=== PATIENT | male | born 1970 | race Caucasian/White ===

== ENCOUNTER 2021-03-06 10:22 | Emergency (ER) | payer SELFPAY ==
[~2021-03-06] VITALS: Ht 165.1 cm; Wt 72.7 kg
[2021-03-06] MEDS ORDERED: MORPHINE SULFATE 2 MG/ML INJ. IV/SQ PRN (10:45)
--- NOTE | 2021-03-06 10:50 | PHYS DOC ---
Past Medical History Past Surgical History: Other Additional Past Surgical Histo: TESTICLE TORSION General Adult EDM: Chief Complaint: BACK PAIN - NO INJURY HPI: HPI: Patient is a 50 year old male with history of HTN who presents with chest and back pain. At 9 AM was sitting watching television when he had sudden severe onset of midthoracic back pain. Described as stabbing and pressure. Occasionally radiates towards the chest, and then moved back towards the back. Associated with numbness/tingling in his extremities bilaterally. Never had similar symptoms. Denies history of HLD, DM. He is a daily smoker. Review of Systems: Review of Systems: Constitutional: Denies fever or chills. [] Eyes: Denies change in visual acuity. [] HENT: Denies nasal congestion or sore throat. [] Respiratory: Denies cough or shortness of breath. [] Cardiovascular: Reports chest pain and back pain GI: Denies abdominal pain, nausea, vomiting, bloody stools or diarrhea. [] : Denies dysuria. [] Musculoskeletal:. Reports severe back pain. Denies Joint pain. [] Integument: Denies rash. [] Neurologic: Denies headache, focal weakness or sensory changes. [] Endocrine: Denies polyuria or polydipsia. [] Lymphatic: Denies swollen glands. [] Psychiatric: Denies depression or anxiety. [] Heart Score: C/O Chest Pain: Yes HEART Score for Chest Pain: HEART Score for Chest Pain Response (Comments) Value History Moderately Suspicious 1 ECG Nonspecific Repolarizatio 1 Age >45 - < 65 1 Risk Factors 1 or 2 Risk Factors 1 Troponin < Normal Limit 0 Total 4 Risk Factors: Risk Factors: HTN and smoking Allergies: Allergies: Allergies Coded Allergies Type Severity Reaction Last Updated Verified No Known Drug Allergies 03/06/21 No Physical Exam: PE: Constitutional: Diaphoretic, appears acutely uncomfortable HENT: Normocephalic, atraumatic, bilateral external ears normal, oropharynx moist, no oral exudates, nose normal. [] Eyes: PERRLA, EOMI, conjunctiva normal, no discharge. [] Neck: Normal range of motion, no tenderness, supple, no stridor. [] Cardiovascular:Heart rate regular rhythm, no murmur [] Lungs & Thorax: Bilateral breath sounds clear to auscultation [] Abdomen: Bowel sounds normal, soft, no tenderness, no masses, no pulsatile masses. [] Skin: Warm, dry, no erythema, no rash. [] Back: No tenderness, no CVA tenderness. [] Extremities: No tenderness, no cyanosis, no clubbing, ROM intact, no edema. 2+ pulses in bilateral radial arteries and DP. All extremities are warm, well perfused. [] Neurologic: Alert and oriented X 3, normal motor function, normal sensory function, no focal deficits noted. [] Psychologic: Affect normal, judgement normal, mood normal. [] Current Patient Data: Vital Signs: Vital Signs Date Time Temp Pulse Resp B/P (MAP) Pulse Ox O2 Delivery O2 Flow Rate FiO2 03/06/21 10:22 97.9 77 19 160/92 (114) 97 Room Air 97.9 EKG: EKG: [] Sinus rhythm. Rate 73. Normal axis. Normal intervals. Possibly some lateral ST depression in V5. No ST elevation. Radiology/Procedures: Radiology/Procedures: [] Impression: [facility] [address] [place], [place] [id number] IMAGING REPORT Signed PATIENT: ANDREY MELENDREZ ACCOUNT: [id number] : 1970 LOCATION: ER AGE: 50 SEX: M EXAM STATUS: PRE ER ORD. PHYSICIAN: RAYMON BRAMBILA MD REASON: r/o aortic dissection. severe chest/back pain. PROCEDURE: CT ANGIOGRAPHY CHEST CT angiography of the chest 03/06/2021 INDICATION: Severe chest pain. Evaluate for dissection. COMPARISON STUDY: None. FINDINGS: CT imaging of the chest was performed before and after the administr ation of contrast. 3-D reconstructions of thoracic vasculature were created on an independent workstation and reviewed. FINDINGS: Motion artifact noted in the heart and proximal most ascending aorta. There is no evidence of thoracic aortic dissection or aneurysm. Bovine configuration of the aortic arch noted. Patient is seen to be left vertebral dominant. There is no evidence of thoracic aortic aneurysm. Visualized parts of the upper abdominal aorta are unremarkable. Heart size is normal. No pericardial effusion is identified. Multifocal mediastinal and bilateral hilar adenopathy is noted. Some of these nodes have a short axis diameter just under 1.5 cm including a node in the subaortic region (image 35) and in the paraesophageal (image 52 ) regions. Intralobular emphysematous changes are seen throughout the lungs. No pneumothorax, or pleural effusion is seen. Appearing focal infiltrate is identified. IMPRESSION: 1. No evidence of aortic dissection 2. Centrilobular emphysema 3. Mediastinal and bilateral hilar adenopathy, which is nonspecific. Clinical correlation for possible etiologies of mediastinal adenopathy recommended. Based on clinical history and findings, further evaluation with 3 month follow- up chest CT or PET/CT should be considered. CT DOSING PQRS STATEMENT: One or more of the following individualized dose reduction techniques were utilized for this examination: 1. Automated exposure control 2. Adjustment of the mA and/or kV according to patient size 3. Use of iterative reconstruction technique Electronically signed by: Talha Lozano MD (03/06/2021 11:33 AM) [id number] DICTATED and SIGNED BY: TALHA LOZANO MD DATE: 03/06/21 [id number] 0 Course & Med Decision Making: Course & Med Decision Making Pertinent Labs and Imaging studies reviewed. (See chart for details) Patient 50-year-old male with history of untreated HTN, smoking who presents with stabbing back pain radiating to the chest. Hypertensive to 160s here, hypertensive in the 200s originally on scene. Received 324 mg ASA prior to arrival. Concern for aortic dissection, ACS. CTA of the chest ordered. Serial troponins ordered. EKG shows no STEMI. 1050 Troponin elevated 301. Discussed with radiology, no dissection, and no PE. Will treat with IV heparin load and infusion. Will discuss with cardiology and hospitalist regarding admission. 1125 Nursing staff notified me that the troponin of 301 was a result of a laboratory error. The patient's actual troponin was 5. He will still require serial troponin levels to r/o ACS. He was unforunately given an inappropriate dose of heparin based on this incorrect lab. I explained the series of events to the patient and he is understanding of the situation. Will discuss with admitting team to determine most appropriate path forward regarding his admission. [address] Nowak, hospitalist. Will be observation admit for hypertension management and serial troponins. 1318 Dragalejandro Disclaimer: Dragalejandro Disclaimer: This electronic medical record was generated, in whole or in part, using a voice recognition dictation system. Departure Departure Impression: Primary Impression: Mediastinal lymphadenopathy Additional Impression: Chest pain Disposition: ADMITTED INPATIENT Admitting Physician: FIORDALIZA Guerrero) Condition: STABLE RAYMON BRAMBILA MD Mar 06, 2021 10:50
[2021-03-06 10:55] LABS: BASO % 1 % (0-3); EOS # 0.2 x10^3/uL (0.0-0.7); EOS % 2 % (0-3); HEMATOCRIT 48.9 % (39.0-53.0); HEMOGLOBIN 16.6 g/dL (13.0-17.5); LYMPH # 2.6 x10^3/uL (1.0-4.8); LYMPH % 26 % (24-48); MEAN CORPUSCULAR HEMOGLOBIN 31 pg (25-35); MEAN CORPUSCULAR HGB CONC 34 g/dL (31-37); MEAN CORPUSCULAR VOLUME 91 fL (79-100); MONO # 0.9 x10^3/uL (0.0-1.1); MONO % 9 % (0-9); NEUT # 6.1 x10^3/uL (1.8-7.7); NEUT % 62 % (31-73); PLATELET COUNT 223 x10^3/uL (140-400); RED BLOOD COUNT 5.36 x10^6/uL (4.30-5.70); RED CELL DISTRIBUTION WIDTH 14.2 % (11.5-14.5); WHITE BLOOD COUNT 9.7 x10^3/uL (4.0-11.0)
[2021-03-06] MEDS ORDERED: CONTRAST GIVEN. MC PRN (11:00)
[2021-03-06] MEDS ORDERED: IOHEXOL 350 MG/ML 100 ML VIAL. IV ONE (11:00)
[2021-03-06] MEDS ORDERED: NITROGLYCERIN SUBLINGUAL 0.4 MG BOTTLE OF 25. SL PRN (11:15)
[2021-03-06] MEDS ORDERED: HEPARIN for IV BOLUS 10,000 UNIT/10 ML VIAL. IV PRN (11:30)
[2021-03-06] MEDS ORDERED: HEPARIN for IV BOLUS 10,000 UNIT/10 ML VIAL. IV ONE (11:30)
[2021-03-06] MEDS ORDERED: HEPARIN 25,000UTS/250ML PREMIX 250 ML IV PRN (11:30)
--- NOTE | 2021-03-06 11:36 | RAD ---
CT angiography of the chest 03/06/2021 INDICATION: Severe chest pain. Evaluate for dissection. COMPARISON STUDY: None. FINDINGS: CT imaging of the chest was performed before and after the administration of contrast. 3-D reconstructions of thoracic vasculature were created on an independent workstation and reviewed. FINDINGS: Motion artifact noted in the heart and proximal most ascending aorta. There is no evidence of thoracic aortic dissection or aneurysm. Bovine configuration of the aortic arch noted. Patient is seen to be left vertebral dominant. There is no evidence of thoracic aortic aneurysm. Visualized part s of the upper abdominal aorta are unremarkable. Heart size is normal. No pericardial effusion is identified. Multifocal mediastinal and bilateral hil ar adenopathy is noted. Some of these nodes have a short axis diameter just under 1.5 cm including a node in the subaortic region (image 35) and in the paraesophageal (image 52 ) regions. Intralobular emphysematous changes are seen throughout the lungs. No pneumothorax, or pleural effusio n is seen. Appearing focal infiltrate is identified. IMPRESSION: 1. No evidence of aortic dissection 2. Centrilobular emphysema 3. Mediastinal and bilateral hilar adenopathy, which is nonspecific. Clinical correlation for possibl e etiologies of mediastinal adenopathy recommended. Based on clinical history and findings, further evaluation with 3 month follow-up chest CT or PET/CT should be considered. CT DOSING PQRS STATEMENT: One or more of the following individualized dose reduction techniques were utilized for this examinat ion: 1. Automated exposure control 2. Adjustment of the mA and/or kV according to patient size 3. Use of iterative reconstruction technique Electronically signed by: Talha Damian MD (03/06/2021 11:33 AM) [id number]
--- NOTE | 2021-03-06 11:53 | EKG ---
[facility] [address] [place] [address] Test Date: 2021-03-06 Test Time: 11:16:03 Pat Name: ANDREY MELENDREZ Department: Room: Gender: M [employer]ants: : 1970 Requested By: RAYMON BRAMBILA Order Number: [id number] Reading MD: Nino Hinojosa Measurements Intervals [place] Rate: 69 P: 45 NV: 162 QRS: 48 QRSD: 94 T: 52 QT: 380 QTc: 409 Interpretive Statements SINUS RHYTHM Electronically Signed On 03-08-2021 7:23:28 FIBER WORKER by Nino Hinojosa
--- NOTE | 2021-03-06 11:54 | EKG ---
[facility] [address] [place] [address] Test Date: 2021-03-06 Test Time: 10:31:58 Pat Name: ANDREY MELENDREZ Department: Room: Gender: M [employer]argo Checker: : 1970 Requested By: RAYMON BRAMBILA Order Number: [id number] Reading MD: Nino Hinojosa Measurements Intervals [place] Rate: 73 P: 44 PA: 156 QRS: 55 QRSD: 94 T: 47 QT: 378 QTc: 420 Interpretive Statements SINUS RHYTHM Electronically Signed On 03-08-2021 7:23:54 APPLICATION DESIGN ENGINEER by Nino Hinojosa
--- NOTE | 2021-03-06 12:20 | PDOC1 ---
History and Physical Date of Service: DOS: DATE: 03/06/21 TIME: 12:17 Chief Complaint: Chief Complain: Chest pain. History of Present Illness: HPI: History obtained from discussion with the ED physician and chart review: 50-year-old male with no significant past medical history except for and does not follow-up closely with his PCP who comes in with back pain initially that radiated to his chest. He was at home this morning and watching television when he had sudden severe onset of midthoracic back pain. Pain is described as stabbing and pressure-like and radiating towards his chest. It was 8 out of 10 initially and now it is currently 1 out of 10. Does not change with position or deep inspiration. Associated numbness and tingling in his extremities bilaterally. Never had prior pain like this before. Smokes about a half a pack per day. Denies fevers, shortness of breath, abdominal pain, diarrhea, dysuria or flulike symptoms. Of note, patient measured his blood pressure at home and it was in the 200s. Past Medical/Surgical History: PMH/PSH: Hypertension Past Surgical History: Testicular torsion Allergies: Allergies: Coded Allergies: No Known Drug Allergies (Unverified , 03/06/21) Family History: Family History: Reviewed with no relevant findings Social History: Social History: Occasional drinking alcohol and smokes a pack to half a day Current Medications: Current Medications Current Medications Morphine Sulfate (Morphine Sulfate) 2 mg PRN Q15MIN PRN IV/SQ PAIN GREATER THAN 3/10; Start 03/06/21 at 10:45; Stop 03/07/21 at 10:44 Iohexol (Omnipaque 350 Mg/ml) 90 ml 1X ONCE IV Last administered on 03/06/21at 11:14; Start 03/06/21 at 11:00; Stop 03/06/21 at 11:01; Status DC Info (CONTRAST GIVEN -- Rx MONITORING) 1 each PRN DAILY PRN MC SEE COMMENTS; Start 03/06/21 at 11:00; Stop 03/08/21 at 10:59 Nitroglycerin (Nitrostat) 0.4 mg PRN Q5MIN PRN SL CHEST PAIN; Start 03/06/21 at 11:15 Heparin Sodium (Porcine) (Heparin Sodium) 4,000 unit 1X ONCE IV Last administered on 03/06/21at 11:49; Start 03/06/21 at 11:30; Stop 03/06/21 at 11:31; Status DC Heparin Sodium/ Dextrose 250 ml @ 8.724 mls/ hr CONT PRN IV PER PROTOCOL Last administered on 03/06/21at 11:50; Start 03/06/21 at 11:30 Heparin Sodium (Porcine) (Heparin Sodium) 1,800 unit PRN Q6HRS PRN IV FOR UFH LEVEL LESS THAN 0.2; Start 03/06/21 at 11:30 ROS: Review of Systems Review of System REVIEW OF SYSTEMS: GENERAL: Denies weakness SKIN: No bruising, hair changes or rashes. EYES: No blurred, double or loss of vision. NOSE AND THROAT: No history of nosebleeds, hoarseness or sore throat. HEART: No history of palpitations, chest pain or shortness of breath on exertion. LUNGS: Denies cough, hemoptysis, wheezing or shortness of breath. GASTROINTESTINAL: Denies changes in appetite, nausea, vomiting, diarrhea or constipation. GENITOURINARY: No history of frequency, urgency, hesitancy or nocturia. NEUROLOGIC: Denies history of numbness, tingling, or tremor. PSYCHIATRIC: No history of panic, anxiety or depression. ENDOCRINE: No history of heat or cold intolerance, polyuria or polydipsia. EXTREMITIES: Denies joint pain, pain on walking or stiffness. Physical Exam: Vital Signs: Vital Signs Date Time Temp Pulse Resp B/P (MAP) Pulse Ox O2 Delivery O2 Flow Rate FiO2 03/06/21 10:22 97.9 77 19 160/92 (114) 97 Room Air 97.9 Physcial Exam: General: Well developed, well nourished, no acute distress, well appearing HEENT: Pupils equally round and reactive to light, EOMI, no discharge, normal conjunctiva Neck: Supple, no nuchal rigidity, no JVD, trachea midline, no tenderness Cardiac: RRR, no murmurs, no gallops, no rubs Chest/Lungs: CTAB, no wheeze, no rhonchi, no crackles Abdomen: soft, non-distended, no guarding, no peritoneal signs, non-tender Back: No tenderness Extremities: no edema, pulses intact, non-tender,capillary refill <3 sec bilateral upper and lower extremities, Neuro: Alert and oriented x 4, no focal deficits, normal speech Labs: Labs: Laboratory Tests Test 03/06/21 10:36 White Blood Count 9.7 x10^3/uL (4.0-11.0) Red Blood Count 5.36 x10^6/uL (4.30-5.70) Hemoglobin 16.6 g/dL (13.0-17.5) Hematocrit 48.9 % (39.0-53.0) Mean Corpuscular Volume 91 fL (79-100) Mean Corpuscular Hemoglobin 31 pg (25-35) Mean Corpuscular Hemoglobin Concent 34 g/dL (31-37) Red Cell Distribution Width 14.2 % (11.5-14.5) Platelet Count 223 x10^3/uL (140-400) Neutrophils (%) (Auto) 62 % (31-73) Lymphocytes (%) (Auto) 26 % (24-48) Monocytes (%) (Auto) 9 % (0-9) Eosinophils (%) (Auto) 2 % (0-3) Basophils (%) (Auto) 1 % (0-3) Neutrophils # (Auto) 6.1 x10^3/uL (1.8-7.7) Lymphocytes # (Auto) 2.6 x10^3/uL (1.0-4.8) Monocytes # (Auto) 0.9 x10^3/uL (0.0-1.1) Eosinophils # (Auto) 0.2 x10^3/uL (0.0-0.7) Basophils # (Auto) 0.0 x10^3/uL (0.0-0.2) Sodium Level 144 mmol/L (136-145) Potassium Level 4.5 mmol/L (3.5-5.1) Chloride Level 107 mmol/L (98-107) Carbon Dioxide Level 30 mmol/L (21-32) Anion Gap 7 (6-14) Blood Urea Nitrogen 15 mg/dL (8-26) Creatinine 0.9 mg/dL (0.7-1.3) Estimated GFR (Cockcroft-Gault) 90.1 BUN/Creatinine Ratio 17 (6-20) Glucose Level 85 mg/dL (70-99) Calcium Level 8.9 mg/dL (8.5-10.1) Total Bilirubin 0.3 mg/dL (0.2-1.0) Aspartate Amino Transf (AST/SGOT) 14 U/L (15-37) Alanine Aminotransferase (ALT/SGPT) 26 U/L (16-63) Alkaline Phosphatase 58 U/L (46-116) Troponin I High Sensitivity 301 ng/L (4-75) Total Protein 6.4 g/dL (6.4-8.2) Albumin 3.4 g/dL (3.4-5.0) Albumin/Globulin Ratio 1.1 (1.0-1.7) Lipase 73 U/L (73-393) Laboratory Tests Test 03/06/21 10:36 White Blood Count 9.7 x10^3/uL (4.0-11.0) Red Blood Count 5.36 x10^6/uL (4.30-5.70) Hemoglobin 16.6 g/dL (13.0-17.5) Hematocrit 48.9 % (39.0-53.0) Mean Corpuscular Volume 91 fL (79-100) Mean Corpuscular Hemoglobin 31 pg (25-35) Mean Corpuscular Hemoglobin Concent 34 g/dL (31-37) Red Cell Distribution Width 14.2 % (11.5-14.5) Platelet Count 223 x10^3/uL (140-400) Neutrophils (%) (Auto) 62 % (31-73) Lymphocytes (%) (Auto) 26 % (24-48) Monocytes (%) (Auto) 9 % (0-9) Eosinophils (%) (Auto) 2 % (0-3) Basophils (%) (Auto) 1 % (0-3) Neutrophils # (Auto) 6.1 x10^3/uL (1.8-7.7) Lymphocytes # (Auto) 2.6 x10^3/uL (1.0-4.8) Monocytes # (Auto) 0.9 x10^3/uL (0.0-1.1) Eosinophils # (Auto) 0.2 x10^3/uL (0.0-0.7) Basophils # (Auto) 0.0 x10^3/uL (0.0-0.2) Sodium Level 144 mmol/L (136-145) Potassium Level 4.5 mmol/L (3.5-5.1) Chloride Level 107 mmol/L (98-107) Carbon Dioxide Level 30 mmol/L (21-32) Anion Gap 7 (6-14) Blood Urea Nitrogen 15 mg/dL (8-26) Creatinine 0.9 mg/dL (0.7-1.3) Estimated GFR (Cockcroft-Gault) 90.1 BUN/Creatinine Ratio 17 (6-20) Glucose Level 85 mg/dL (70-99) Calcium Level 8.9 mg/dL (8.5-10.1) Total Bilirubin 0.3 mg/dL (0.2-1.0) Aspartate Amino Transf (AST/SGOT) 14 U/L (15-37) Alanine Aminotransferase (ALT/SGPT) 26 U/L (16-63) Alkaline Phosphatase 58 U/L (46-116) Troponin I High Sensitivity 301 ng/L (4-75) Total Protein 6.4 g/dL (6.4-8.2) Albumin 3.4 g/dL (3.4-5.0) Albumin/Globulin Ratio 1.1 (1.0-1.7) Lipase 73 U/L (73-393) Images: Images PROCEDURE: CT ANGIOGRAPHY CHEST CT angiography of the chest 03/06/2021 INDICATION: Severe chest pain. Evaluate for dissection. COMPARISON STUDY: None. FINDINGS: CT imaging of the chest was performed before and after the administration of contrast. 3-D reconstructions of thoracic vasculature were created on an independent workstation and reviewed. FINDINGS: Motion artifact noted in the heart and proximal most ascending aorta. There is no evidence of thoracic aortic dissection or aneurysm. Bovine configuration of the aortic arch noted. Patient is seen to be left vertebral dominant. There is no evidence of thoracic aortic aneurysm. Visualized parts of the upper abdominal aorta are unremarkable. Heart size is normal. No pericardial effusion is identified. Multifocal mediastinal and bilateral hilar adenopathy is noted. Some of these nodes have a short axis diameter just under 1.5 cm including a node in the subaortic region (image 35) and in the paraesophageal (image 52 ) regions. Intralobular emphysematous changes are seen throughout the lungs. No pneumothorax, or pleural effusion is seen. Appearing focal infiltrate is identified. IMPRESSION: 1. No evidence of aortic dissection 2. Centrilobular emphysema 3. Mediastinal and bilateral hilar adenopathy, which is nonspecific. Clinical correlation for possible etiologies of mediastinal adenopathy recommended. Based on clinical history and findings, further evaluation with 3 month follow-u p chest CT or PET/CT should be considered. Assessment/Plan Assessment/Plan Hypertensive urgency History of hypertension History of dyslipidemia Admit for observation Telemetry monitoring Start atorvastatin and amlodipine Discharge from the ED when troponin is negative x2, chest pain-free and blood pressure is stabilized. Have patient follow-up closely with PCP for blood pressure and cholesterol management Justifications for Admission Other Justification SAQIB FONG MD Mar 06, 2021 12:20
[2021-03-06 12:34] LABS: AMPHETAMINE/METHAMPHETAMINE NEG (NEG); BARBITURATES NEG (NEG); BENZODIAZEPINES NEG (NEG); CANNABINOIDS NEG (NEG); COCAINE NEG (NEG); METHADONE NEG (NEG); OPIATES NEG (NEG); PHENCYCLIDINE NEG (NEG)
[2021-03-06 12:38] LABS: CHOLESTEROL/HDL RATIO 3.8
[2021-03-06 13:16] LABS: CALCIUM 8.2 mg/dL (8.5-10.1); CREATININE 0.7 mg/dL (0.7-1.3); GFR 120.4; POTASSIUM 3.6 mmol/L (3.5-5.1)
[2021-03-06 13:22] LABS: ALBUMIN 3.5 g/dL (3.4-5.0); ALBUMIN/GLOBULIN RATIO 1.2 (1.0-1.7); TOTAL BILIRUBIN 0.4 mg/dL (0.2-1.0); TOTAL PROTEIN 6.5 g/dL (6.4-8.2)
--- NOTE | 2021-03-06 14:17 | PDOC2 ---
SHERMAN HERNANDEZ POST OFFICE MARKUP CLERK 03/06/21 1417: CARDIAC CONSULT DATE OF CONSULT Date of Consult DATE: 03/06/21 TIME: 14:09 REASON FOR CONSULT Reason for Consult: NSTEMI REFERRING PHYSICIAN Referring Physician: Mynor SOURCE Source: Chart review, Patient HISTORY OF PRESENT ILLNESS HISTORY OF PRESENT ILLNESS This is a pleasant 50 yo male admitted for complains of midback and shoulder discomfort. Reports that this started just suddenly and throbbing dull achy from midback to his shoulders then neck then eventually went to his front chest. He also had some tingling to his arms.No nausea or vomiting. No palpitations. 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 Denies any falls or injury. He did check his BP and it was high. He does drink beer but not excessive. No hx of CAD or aneurysm and no VTE. Upon admission his BP was confirmed to be high. He is not vaccinated for covid-19 and no symptoms in regards to the latter. PAST MEDICAL HISTORY Past Medical History testicular torsion PAST SURGICAL HISTORY Past Surgical History: Other (testicular torsion repair) FAMILY HISTORY Family History noncontributory SOCIAL HISTORY Smoke: 1 pack per day ALCOHOL: occassional Drugs: None Lives: with Family CURRENT MEDICATIONS CURRENT MEDICATIONS Current Medications Medications (Trade) Dose Ordered Sig/Shyanne Route PRN Reason Start Time Stop Time Status Last Admin Dose Admin Iohexol (Omnipaque 350 Mg/ml) 90 ml 1X ONCE IV 03/06/21 11:00 03/06/21 11:01 DC 03/06/21 11:14 Heparin Sodium (Porcine) (Heparin Sodium) 4,000 unit 1X ONCE IV 03/06/21 11:30 03/06/21 11:31 DC 03/06/21 11:49 Heparin Sodium/ Dextrose 250 ml @ 8.724 mls/ hr CONT PRN IV PER PROTOCOL 03/06/21 11:30 03/06/21 11:50 ALLERGIES ALLERGIES: Coded Allergies: No Known Drug Allergies (Unverified , 03/06/21) ROS Review of System 14 point ROS evaluated with pertinent positives noted per HPI PHYSICAL EXAM General: Alert, Oriented X3, Cooperative, No acute distress HEENT: Atraumatic, Mucous membr. moist/pink Lungs: Clear to auscultation, Normal air movement Heart: Regular rate (SR), Normal S1, Normal S2, No murmurs Abdomen: Soft, No tenderness Extremities: No cyanosis, No edema Skin: No breakdown, No significant lesion Neuro: Normal speech, Sensation intact Psych/Mental Status: Mood NL MUSCULOSKELETAL: Full range of motion without pain VITALS/I&O VITALS/I&O: Vital Signs Date Time Temp Pulse Resp B/P (MAP) Pulse Ox O2 Delivery O2 Flow Rate FiO2 03/06/21 13:29 68 16 135/94 (108) 97 Room Air 03/06/21 10:22 97.9 97.9 LABS Lab: Laboratory Tests Test 03/06/21 10:36 03/06/21 11:15 03/06/21 12:06 03/06/21 12:32 White Blood Count 9.7 x10^3/uL (4.0-11.0) Red Blood Count 5.36 x10^6/uL (4.30-5.70) Hemoglobin 16.6 g/dL (13.0-17.5) Hematocrit 48.9 % (39.0-53.0) Mean Corpuscular Volume 91 fL (79-100) Mean Corpuscular Hemoglobin 31 pg (25-35) Mean Corpuscular Hemoglobin Concent 34 g/dL (31-37) Red Cell Distribution Width 14.2 % (11.5-14.5) Platelet Count 223 x10^3/uL (140-400) Neutrophils (%) (Auto) 62 % (31-73) Lymphocytes (%) (Auto) 26 % (24-48) Monocytes (%) (Auto) 9 % (0-9) Eosinophils (%) (Auto) 2 % (0-3) Basophils (%) (Auto) 1 % (0-3) Neutrophils # (Auto) 6.1 x10^3/uL (1.8-7.7) Lymphocytes # (Auto) 2.6 x10^3/uL (1.0-4.8) Monocytes # (Auto) 0.9 x10^3/uL (0.0-1.1) Eosinophils # (Auto) 0.2 x10^3/uL (0.0-0.7) Basophils # (Auto) 0.0 x10^3/uL (0.0-0.2) Activated Partial Thromboplast Time 32 SEC (24-38) Troponin I High Sensitivity 5 ng/L (4-75) Triglycerides Level 85 mg/dL (0-150) Cholesterol Level 228 mg/dL (0-200) H LDL Cholesterol, Calculated 151 mg/dL (0-100) H VLDL Cholesterol, Calculated 17 mg/dL (0-40) Non-HDL Cholesterol Calculated 168 mg/dL (0-129) H HDL Cholesterol 60 mg/dL (40-60) Cholesterol/HDL Ratio 3.8 Thyroid Stimulating Hormone (TSH) 2.802 uIU/mL (0.358-3.74) Urine Opiates Screen Neg (NEG) Urine Methadone Screen Neg (NEG) Urine Barbiturates Neg (NEG) Urine Phencyclidine Screen Neg (NEG) Urine Amphetamine/Methamphetamine Neg (NEG) Urine Benzodiazepines Screen Neg (NEG) Urine Cocaine Screen Neg (NEG) Urine Cannabinoids Screen Neg (NEG) Urine Ethyl Alcohol Pos (NEG) SARS-CoV-2 Antigen (Rapid) Negative (NEGATIVE) Sodium Level 138 mmol/L (136-145) Potassium Level 3.6 mmol/L (3.5-5.1) Chloride Level 100 mmol/L (98-107) Carbon Dioxide Level 28 mmol/L (21-32) Anion Gap 10 (6-14) Blood Urea Nitrogen 8 mg/dL (8-26) Creatinine 0.7 mg/dL (0.7-1.3) Estimated GFR (Cockcroft-Gault) 120.4 BUN/Creatinine Ratio 11 (6-20) Glucose Level 84 mg/dL (70-99) Calcium Level 8.2 mg/dL (8.5-10.1) L Total Bilirubin 0.4 mg/dL (0.2-1.0) Aspartate Amino Transferase (AST) 22 U/L (15-37) Alanine Aminotransferase (ALT) 22 U/L (16-63) Alkaline Phosphatase 71 U/L (46-116) Total Protein 6.5 g/dL (6.4-8.2) Albumin 3.5 g/dL (3.4-5.0) Albumin/Globulin Ratio 1.2 (1.0-1.7) Lipase 60 U/L (73-393) L Laboratory Tests 03/06/21 10:36 Laboratory Tests 03/06/21 12:32 ASSESSMENT/PLAN ASSESSMENT/PLAN 1. Atypical CP: possibly related to high BP. EKG NSR. CTA reviewed 2. HTN urgency 3. Tobaccoism with COPD: noted per CTA 4. HLP: nonfasting Recommendations 1. Diet modification. DASH diet 2. Start norvasc and discussed about HBPM 3. Follow up in office as scheduled 4. SMoking cessation will need PFTs outpt SOLEDAD JAMES MD 03/08/21 0709: CARDIAC CONSULT ASSESSMENT/PLAN ASSESSMENT/PLAN Patient seen and examined 03/06/21 (late entry). Agree with INSEAM TRIMMING MACHINE OPERATOR's assessment and plan. CP with atypical features. AL ruled out Start amlodipine for better BP control CT chest ruled out aortic dissection Plan outpatient ischemic evaluation Thank you for your consultation SHERMAN HERNANDEZ APRN Mar 06, 2021 14:17 SOLEDAD JAMES MD Mar 08, 2021 07:09
[2021-03-06] MEDS ORDERED: ATOR40TA59 PO (14:20)
[2021-03-06] MEDS ORDERED: AMLO-186 PO (14:20)
--- NOTE | 2021-03-06 14:21 | DISCH ---
DISCHARGE INSTRUCTIONS Condition on Discharge Condition on Discharge: Stable Activity After Discharge Activity Instructions for Disc: Activity as tolerated Lifting Instructions after Dis: Do not lift >10 pounds Driving Instructions after Dis: Do not drive today Weight Bearing Status after Di: No restrictions Diet after Discharge Diet after Discharge: Cardiac Follow-Up Follow up with: PCP within 2 weeks of discharge for your hypertension high cholesterol SAQIB FONG MD Mar 06, 2021 14:21
[2021-03-06 17:26] VITALS: BP 167/97
--- NOTE | 2021-03-09 17:45 | PDOC3 ---
[facility]-Discharge Summary Date of Admission: Date of Admission: Mar 06, 2021 Date of Discharge: Date of Discharge: Mar 06, 2021 Discharge Diagnosis: Discharge Diagnosis: Hypertensive urgency History of hypertension History of dyslipidemia Hospital Course: Hospital Course: 50-year-old male with no significant past medical history except for and does not follow-up closely with his PCP who comes in with back pain initially that radiated to his chest. He was at home this morning and watching television when he had sudden severe onset of midthoracic back pain. Pain is described as stabbing and pressure-like and radiating towards his chest. It was 8 out of 10 initially and now it is currently 1 out of 10. Does not change with position or deep inspiration. Associated numbness and tingling in his extremities bilaterally. Never had prior pain like this before. Smokes about a half a pack per day. Denies fevers, shortness of breath, abdominal pain, diarrhea, dysuria or flulike symptoms. Of note, patient measured his blood pressure at home and it was in the 200s. By time of discharge patient's chest pain improved and troponins were negative. Blood pressures were controlled and he will be started on amlodipine and atorvastatin. Disposition: Disposition/Orders: D/C to Home Activity: Activity: Resume previous activity Diet: Diet: Cardiac Medications: Home Meds Active Scripts Atorvastatin Calcium (ATORVASTATIN CALCIUM) 40 Mg Tablet, 1 TAB PO QHS for cholesterol, #90 TAB 3 Refills Prov:SAQIB FONG MD 03/06/21 Amlodipine Besylate (AMLODIPINE BESYLATE) 5 Mg Tablet, 5 MG PO DAILY for blood pressure for 30 Days, #30 TAB Prov:SAQIB FONG MD 03/06/21 Scheduled Amlodipine Besylate (Amlodipine Besylate), 5 MG PO DAILY Atorvastatin Calcium (Atorvastatin Calcium), 1 TAB PO QHS Total Time: Total Time: Total time spent was 31 minutes in preparing scripts, discharge planning with SWI and RN and preparing this discharge summary Patient seen and examined on day of discharge. No acute abnormal findings. Justicifation of Admission Dx: Justifications for Admission: Justification of Admission Dx: Yes IA: Acute NSTEMI SAQIB FONG MD Mar 09, 2021 17:45
== END 2021-03-06 13:09 | disposition admitted as inpatient to this hospital (09) ==
LOC: ER 10:22 → EDSEX 10:25 → INTOOBSV 11:27 → UNDOADMOB 11:27 → ED HOLD 11:27
DX: R07.89 Other chest pain (principal); Z20.822 Contact with and (suspected) exposure to COVID-19; R59.1 Generalized enlarged lymph nodes
CPT/HCPCS: 36415; 71275; 80053; 80061; 80307; 83690; 84443; 84484; 85025; 85730; 87426; 93005; 96365; 96376; 99285; J1644; Q9967; U0003; U0005